=== PATIENT | female | born 2005 | race Caucasian/White ===

== ENCOUNTER 2024-05-20 15:16 | Emergency (ER) | payer MEDICAID, SELFPAY ==
[2024-05-20 15:17] VITALS: BP 123/86; PULSE 95; RESP 18; TEMP 36.2; O2SAT 100; BMI 24.8
[2024-05-20 15:52] LABS: Absolute Lymphocyte Count 1.06 X10^3/uL (0.83-4.51); Absolute Neutrophil Count 12.7 X10^3/uL (2.0-7.7); Basophil# 0.09 X10^3/uL; Basophil% 0.6 % (0-1); Eosinophil# 0.01 X10^3/uL; Eosinophils% 0.1 % (0-5); Hematocrit 41.1 % (37-47); Lymphocyte # 1.06 X10^3/ul (0.83-4.51); Lymphocyte % 7.4 % (19-41); Mean Corp Hgb Conc 31.6 g/dL (32-36); Mean Corpuscular Hgb 21.4 pg (27.0-32.0); Mean Corpuscular Volume 67.7 fL (81-99); Mean Platelet Vol. 9.6 fl (6.2-12.0); Monocyte# 0.38 X10^3/uL; Monocyte% 2.7 % (0-10); NRBC Flagged by Analyzer 0 % (0-5); Neutrophil # 12.71 X10^3/uL (2.7-7.7); Neutrophil % 88.9 % (47-70); Platelet Count 333 K/mm3 (150-450); RBC Distribution Width CV 14.6 % (11.6-14.6); RBC Distribution Width SD 34.3 fl (35.1-43.9); Red Blood Count 6.07 M/mm3 (4.2-5.4); White Blood Count 14.3 K/mm3 (4.4-11.0)
[2024-05-20 15:59] LABS: Internal QC Validated? YES +Cl - CLEAR BKGD; Pregnancy, Serum, hCG Quali. NEGATIVE Negative; Record Kit Lot#, Serum Preg. 772476
[2024-05-20 16:06] LABS: ALB/GLOB Ratio 1.2 RATIO (0.9-2.4); AST(SGOT) 14 U/L (15-37); Alanine Aminotransfer ALT/SGPT 21 U/L (13-56); Albumin, Serum 4.6 g/dL (3.2-5.0); Alkaline Phosphatase 68 U/L (45-117); Anion Gap 11 (5-15); BUN 15 mg/dL (7-18); BUN/Creat Ratio 17.1 RATIO (10-20); Calcium,Total 9.8 mg/dL (8.5-10.1); Chloride 104 mmol/L (98-107); Creatinine, Serum 0.88 mg/dL (0.55-1.02); EST Glomerular Filtration Rate 88 mL/min (>60); Est Glom Filt Rate - Afr Amer 107 mL/min (>60); Estimated Creatinine Clearance 96.26 ml/min; Globulin 3.7 g/dL (2.2-4.2); Glucose 105 mg/dL (74-106); Potassium 3.8 mmol/L (3.5-5.1); Protein, Total 8.3 g/dL (6.4-8.2); Sodium Level 139 mmol/L (136-145)
--- NOTE | 2024-05-20 16:31 | EDS_ITS ---
HPI <Dr. Carol Handy DO - Last Filed: 05/20/24 17:44> History of Present Illness Chief Complaint: Nausea/Vomiting <MIGUEL ÁNGEL Pineda - Last Filed: 05/20/24 18:12> Narrative Narrative: Patient is a 18-year-old female with history of arthritis who does not take any medications, presenting to the emergency department for nausea and vomiting, generalized epigastric pain. Patient states that she got extremely intoxicated last evening, patient dates that she woke up around 10 AM and started vomiting. Patient that she cannot keep any water down. She states that her vomit is dark in color. She is here for evaluation [facility] <Dr. Carol Handy DO - Last Filed: 05/20/24 17:44> [facility] Medical History (Updated 05/20/24 @ 18:11 by MIGUEL ÁNGEL Pineda) Arthritis Home Medications ?Medication ?Instructions ?Recorded ?Last Taken ?Type ondansetron 4 mg disintegrating 4 mg PO Q8H PRN PRN Nausea #10 tabs 05/20/24 Unknown Rx tablet Allergy/AdvReac Type Severity Reaction Status Date / Time No Known Allergies Allergy Verified 05/20/24 15:17 Social History Smoking Status: Never smoker ROS <MIGUEL ÁNGEL Pineda - Last Filed: 05/20/24 18:12> ROS ED ROS Narrative Constitutional: Negative for fever, chills, weight loss, weakness Eyes: Negative for vision loss, vision change, double vision ENT: Negative for any sore throat, ear pain, congestion Cardiovascular: Negative for any chest pain, tightness, palpitations Respiratory: Negative for any cough, sputum production, hemoptysis, dyspnea, dyspnea on exertion, orthopnea Gastrointestinal: Negative for any diarrhea, constipation, blood in stool, blood in vomit. Positive for abdominal pain, nausea and vomiting : Negative for any urinary frequency, dysuria, retention, blood in urine Muscle skeletal: Negative for any neck pain, back pain Neurological: Negative for any headache, syncope, dizziness Skin: Negative for any rashes, itching, abrasions, lacerations Psychiatric: Negative for any depression, anxiety, stress, suicidal ideation, homicidal ideation Hematologic: Negative for any excessive bruising, easy bleeding EXAM <Dr. Carol Handy DO - Last Filed: 05/20/24 17:44> Physical Exam Const Vital Signs: 05/20/24 15:17 05/20/24 17:17 Temperature 97.2 F L Temperature Source Temporal Pulse Rate 95 87 Respiratory Rate 18 16 Blood Pressure 123/86 H 131/101 H Blood Pressure Mean 98 111 Pulse Ox 100 96 Oxygen Delivery Method Room Air <Live PhillipMIGUEL ÁNGEL - Last Filed: 05/20/24 18:12> Physical Exam Narrative Exam Narrative: Vital signs reviewed. Patient appears to be in no obvious distress HEET: Head normocephalic atraumatic, TMs clear bilaterally. Posterior pharynx is clear, moist mucous membranes. Nares clear bilaterally. Neck: Supple with no lymphadenopathy or tenderness. No signs of meningismus. Cardiac: Regular rate and rhythm no murmurs gallops or rubs, equal peripheral pulses bilaterally. Respiratory: Lungs clear to auscultation bilaterally. No chest tenderness. Abdomen: Soft, nontender, nondistended. No abdominal bruit or pulsatile masses. No hepatosplenomegaly Extremities: No peripheral edema, no signs of gross trauma or deformity. Active full range of motion of all extremities. Neuro: Cranial nerves II through XII intact, no focal neurological deficits. Skin: Clean dry and intact with no rash, purpura, petechiae, vesicles or pustules. Backs/flank: No CVA tenderness, no midline spinal tenderness, no deformity. Psych: Normal mood and affect. No SI, HI or acute psychosis. Const Vital Signs: 05/20/24 15:17 05/20/24 17:17 Temperature 97.2 F L Temperature Source Temporal Pulse Rate 95 87 Respiratory Rate 18 16 Blood Pressure 123/86 H 131/101 H Blood Pressure Mean 98 111 Pulse Ox 100 96 Oxygen Delivery Method Room Air [facility] <Dr. Carol Handy DO - Last Filed: 05/20/24 17:44> [facility] Narrative Medical decision making narrative: I have personally performed a face to face assessment of the patient and have reviewed the JABARI Note. I performed a substantive portion of the visit including all aspects of the following. My ferguson findings include: History is [patient presents to the emergency department complaint of vomiting. Patient states that she drank very heavily last night and was drinking vodka. This morning she woke up around 10 AM and started having vomiting and diarrhea. Patient thinks that the vomit was black and she brought me a picture of it however it looks brown in the pictures. Patient was concerned about internal bleeding. Denies any sick contacts. She has had no fevers. She has no significant medical history other than rheumatoid arthritis.] Exam is [HEENT-PERRLA, EOMI. Cranial nerves II through XII grossly intact. TMs clear. Mucous membranes moist. No adenopathy. Cardiovascular-regular rate and rhythm without murmur or ectopy Lungs-clear to auscultation, chest wall stable without crepitus or subcu emphysema Abdomen-normoactive bowel sounds, soft. Mild tenderness over the epigastric region with some guarding. There is no rebound, rigidity, or peritoneal signs. No mass palpated. Extremities-intact ?4, normal range of motion, normal pulses, atraumatic] Medical Decison Making [patient had an IV line established and was given normal saline fluid bolus. She was given Protonix IV. Basic labs obtained CBC with differential showed a white count of 14.3 with hemoglobin 13 and platelet count of 333. Chemistries unremarkable. Urinalysis was negative for infection and serum hCG was negative. Lipase was normal at 29. At this point I suspect alcohol intoxication as the cause of her symptoms versus viral gastroenteritis. Advised patient to push fluids. She will be given a prescription for Zofran for home. Advised to return if persistent vomiting, diarrhea, dehydration or condition should worsen anyway. She is advised to decrease alcohol intake] Other additions or changes: [None] Lab Data Attestation: I reviewed the patient's lab results. Labs: Laboratory Results - last 24 hr 05/20/24 05/20/24 15:39 17:17 WBC 14.3 H RBC 6.07 H Hgb 13.0 Hct 41.1 MCV 67.7 L MCH 21.4 L MCHC 31.6 L RDW Std Deviation 34.3 L RDW Coeff of Raheem 14.6 Plt Count 333 MPV 9.6 Immature Gran % (Auto) 0.300 Neut % (Auto) 88.9 H Lymph % (Auto) 7.4 L [place] % (Auto) 2.7 Eos % (Auto) 0.1 Baso % (Auto) 0.6 Absolute Neuts (auto) 12.7 H Absolute Lymphs (auto) 1.06 Nucleated RBC % 0 Sodium 139 Potassium 3.8 Chloride 104 Carbon Dioxide 24.0 Anion Gap 11 BUN 15 Creatinine 0.88 Estim Creat Clear Calc 96.26 Est GFR (MDRD) Af Amer 107 Est GFR (MDRD) Non-Af 88 BUN/Creatinine Ratio 17.1 Glucose 105 Calcium 9.8 Total Bilirubin 0.60 AST 14 L ALT 21 Alkaline Phosphatase 68 Total Protein 8.3 H Albumin 4.6 Globulin 3.7 Albumin/Globulin Ratio 1.2 Lipase 29 Serum , Qual NEGATIVE Urine Color Yellow Urine Clarity Clear Urine pH 7.0 Ur Specific [place] 1.010 Urine Protein 30 H Urine Glucose (UA) Normal Urine Ketones 5 H Urine Occult Blood 10 H Urine Nitrite Negative Urine Bilirubin Negative Urine Urobilinogen 1 H Ur Leukocyte Esterase Negative Urine RBC 0 SEEN Urine WBC 0 SEEN Ur Squamous Epith Cells 0-5 SEEN Urine Bacteria 1+ Urine Mucus 1+ <MIGUEL ÁNGEL Pineda - Last Filed: 05/20/24 18:12> MDM Lab Data Labs: Laboratory Results - last 24 hr 05/20/24 05/20/24 15:39 17:17 WBC 14.3 H RBC 6.07 H Hgb 13.0 Hct 41.1 MCV 67.7 L MCH 21.4 L MCHC 31.6 L RDW Std Deviation 34.3 L RDW Coeff of Raheem 14.6 Plt Count 333 MPV 9.6 Immature Gran % (Auto) 0.300 Neut % (Auto) 88.9 H Lymph % (Auto) 7.4 L [place] % (Auto) 2.7 Eos % (Auto) 0.1 Baso % (Auto) 0.6 Absolute Neuts (auto) 12.7 H Absolute Lymphs (auto) 1.06 Nucleated RBC % 0 Sodium 139 Potassium 3.8 Chloride 104 Carbon Dioxide 24.0 Anion Gap 11 BUN 15 Creatinine 0.88 Estim Creat Clear Calc 96.26 Est GFR (MDRD) Af Amer 107 Est GFR (MDRD) Non-Af 88 BUN/Creatinine Ratio 17.1 Glucose 105 Calcium 9.8 Total Bilirubin 0.60 AST 14 L ALT 21 Alkaline Phosphatase 68 Total Protein 8.3 H Albumin 4.6 Globulin 3.7 Albumin/Globulin Ratio 1.2 Lipase 29 Serum , Qual NEGATIVE Urine Color Yellow Urine Clarity Clear Urine pH 7.0 Ur Specific [place] 1.010 Urine Protein 30 H Urine Glucose (UA) Normal Urine Ketones 5 H Urine Occult Blood 10 H Urine Nitrite Negative Urine Bilirubin Negative Urine Urobilinogen 1 H Ur Leukocyte Esterase Negative Urine RBC 0 SEEN Urine WBC 0 SEEN Ur Squamous Epith Cells 0-5 SEEN Urine Bacteria 1+ Urine Mucus 1+ Treatment and Re-Evaluation :: Differential diagnosis includes however is not limited to: Bowel obstruction, acute cholecystitis, biliary colic, sequelae from alcohol use, nausea and vomiting Patient appears to be in no obvious distress, patient's vital signs are stable. Presenting to the emergency department with complaints of nausea and vomiting after drinking alcohol last evening.Patient is received in laboratory values, patient CBC shows a leukocytosis with white blood count of 14.3, this could be reactive, RBCs of 6.07, this could be secondary dehydration. Patient's serum was negative. Lipase was negative. Chemistries were unremarkable. Patient will receive IV fluids, IV Zofran, IV Toradol. Patient will also be dosed with Protonix. Patient will be reevaluated. On reevaluation, the patient was feeling much better. Patient's urinalysis was negative for any infection. Patient at this time will be given Zofran for home. She instructed to decrease her alcohol intake. She instructed to maintain hydration. She is happy with the plan of care, stable for discharge Discharge Plan Triage Chief Complaint: Nausea/Vomiting ED Midlevel Provider: Live Phillip ED Provider: Carol Handy Dx/Rx/DC Orders Clinical Impression: Nausea & vomiting Instructions: ED Vomiting (Adult) Prescriptions: New ondansetron 4 mg tablet,disintegrating 4 mg PO Q8H PRN PRN (Reason: Nausea) Qty: 10 0RF Primary Care Provider: HEMANT ADAMS APRN Referrals: Care Physician,No Primary [Non-Staff] - Activity Restrictions/Additional Instructions: Decrease your alcohol intake. Use the Zofran as needed. Maintain hydration. Your urine should be light yellow. Print Language: Wolof Disposition Disposition: Home, Self Care
[2024-05-20] MEDS: Ondansetron 4 MG/2 ML Vial IV (16:37)
[2024-05-20] MEDS: Ketorolac 15 MG/ML Vial IV (16:37)
[2024-05-20] MEDS: Pantoprazole Sodium 40 MG in 0.9% Normal Saline (100mL MB+) 100 ML 330 MG IV (16:37)
[2024-05-20 16:50] LABS: Lipase 29 U/L (13-75)
[2024-05-20] MEDS: 0.9% Normal Saline (1000mL) 1,000 ML 999 ML IV (17:16)
[2024-05-20 17:17] VITALS: BP 131/101; PULSE 87; RESP 16; O2SAT 96
[2024-05-20 17:29] LABS: Red Blood Cells-Urine 0 SEEN /hpf (0-5); White Blood Cells 0 SEEN /hpf (0-5)
[2024-05-20 17:33] LABS: Color, Urine Yellow (Yellow); Glucose, Dipstick Normal (Normal); Ketone-Dipstick 5 mg/dl (Negative); Leukocyte Esterase-Dipstick Negative /ul (Negative); Nitrite-Dipstick Negative (Negative); Occult Blood-Urine 10 /ul (Negative); Protein-Dipstick 30 mg/dl (Negative); Urine Bilirubin Dipstick Negative (Negative); Urine Clarity Clear (Clear); Urine Urobilinogen 1 mg/dl (Normal)
[2024-05-20 17:41] LABS: Bacteria 1+ /hpf (None Seen); Mucous, Urine 1+ /hpf (<or=2+); Squamous Epithelial Cells - UA 0-5 SEEN /hpf (5-10)
[2024-05-20 18:22] VITALS: BP 114/62; PULSE 73; RESP 15; TEMP 36.2; O2SAT 99
== END 2024-05-20 18:22 | disposition home or self-care (01) ==
PROVIDERS: Nurse Practitioner; Emergency Provider Emergency Medicine; Visit Provider Emergency Medicine
DX: R11.2 Nausea with vomiting, unspecified (principal); R19.7 Diarrhea, unspecified; R10.13 Epigastric pain
CPT/HCPCS: 80053; 81001; 83690; 84703; 85025; 96361; 96374; 96375; 99282; J7030; A4216; J2405

== ENCOUNTER 2024-07-06 02:41 | Emergency (ER) | payer MEDICAID, SELFPAY ==
[2024-07-06 02:41] VITALS: BP 130/96; PULSE 115; RESP 18; TEMP 36.7; O2SAT 99; BMI 26.3
--- NOTE | 2024-07-06 03:14 | EDS_ITS ---
HPI History of Present Illness Chief Complaint: General Illness Informant: patient Onset/Context/Timing Onset: Today and Yesterday Context: Gradual Onset Timing: Intermittent Current Severity: Mild Maximum Severity: Mild Narrative Narrative: Healthy 18-year-old female no seen past medical or surgical history currently on no medications. States she has had a mild cough and is also developed nausea, vomiting and diarrhea. No fever or chills. This has been the last couple days. Denies any significant abdominal pain. No melena. She is from [place] which is about an hour from here but is come up to visit her boyfriend. Prior similar symptoms: Yes Recent Illness/Hospitalization: No PFSH PFSH Medical History Arthritis Home Medications ?Medication ?Instructions ?Recorded ?Last Taken ?Type ondansetron 4 mg disintegrating 4 mg PO Q6H PRN nausea and 07/06/24 Unknown Rx tablet vomiting #10 tabs Allergy/AdvReac Type Severity Reaction Status Date / Time No Known Allergies Allergy Verified 05/20/24 15:17 Social History Smoking Status: Never smoker ROS ROS ED ROS Narrative Nausea, vomiting and diarrhea. Cough. Constitutional Constitutional ED: Denies chills or fever(s) Eyes Eyes: Denies blurry vision ENT ENT ED: Denies ear pain Cardiovascular Cardiovascular: Denies chest pain Respiratory/Chest Respiratory/Chest: Reports cough Gastrointestinal Gastrointestinal: Reports diarrhea, nausea and vomiting; Denies abdominal pain, constipation or melena Genitourinary Genitourinary ED: Denies dysuria or hematuria Musculoskeletal Musculoskeletal: Denies arthralgias Integumentary Denies abscess Neurologic Neurologic: Denies headache(s) Endocrine Endocrinology: Denies cold intolerance Hematologic/Lymphatic Hematologic/Lymphatic: Reports none Allergic/Immunologic Allergic/Immunologic ED: Denies mouth swelling, tongue swelling or urticaria EXAM Physical Exam Narrative Exam Narrative: Well-appearing 18-year-old female. Vital signs are stable afebrile. Pulse ox 9 9% on room air no hypoxia. H EENT exam unremarkable. Mytrex membranes. Neck nontender no JVD no lymphadenopathy. Lungs clear to auscultation bilaterally. Heart regular rhythm rate about 105 no murmur. Chest wall ribs nontender. Abdomen soft nontender. No peritoneal signs. No localizing right upper or right lower quadrant tenderness. No hernia or mass or obstruction. Moving all 4 extremities. Nontender no edema. Back unremarkable. Neurologically she is awake alert no focal motor deficits. Const Vital Signs: 07/06/24 02:41 Temperature 98.0 F Temperature Source Oral Pulse Rate 115 H Respiratory Rate 18 Blood Pressure 130/96 H Blood Pressure Mean 107 Pulse Ox 99 Oxygen Delivery Method Room Air Positive well nourished and well developed; Negative for cachectic, contractures or unkempt General Appearance ED: well developed and NAD; Negative for unkempt, cachectic, contractures, cyanotic, diaphoretic or pallor Nutritional Appearance: Negative for cachectic HEENT Reports moist mucous membranes Negative for trauma or tenderness Eyes PERRL and EOMs intact bilaterally General Eye ED: Negative for pale conjunctiva or scleral icterus Neck no lymphadenopathy, supple and no JVD Lymph Lymphatic: Negative for other Chest Wall inspection of chest normal and palpation of chest normal Resp normal respiratory effort and clear to auscultation bilaterally Effort and Inspection: Negative for retractions Auscultation: Negative for rales, rhonchi, wheezes or diminished lung sounds Cardio regular rate, regular rhythm, S1 normal heart sound, S2 normal heart sound and no murmurs Palpation: Negative for palpable S3 or palpable S4 Rate: tachycardic; Negative for bradycardia or other GI normal to inspection, nondistended, normoactive bowel sounds, non-tender, non- distended and no masses Inspection: Negative for abdominal distention Palpation: soft; Negative for tender, guarding or rebound tenderness present Back/Spine no CVA tenderness Extremity normal to inspection General Extremety ED: Negative for edema or tenderness General Extremity: Negative for edema Neuro oriented x3 and CN's II-XII intact bilaterally Sensorium / Orientation: alert; Negative for orientation impaired, lethargic or stuporous Motor Exam: strength 5/5 throughout Psych mental status grossly normal Appearance: Negative for unkempt Attitude: No agitated Mood & Affect: Negative for depressed, anxious or tearful Skin no rashes or lesions noted, no wounds and skin turgor normal General Skin Exam: elasticity normal; Negative for jaundice or pallor Lesions: No lesion noted Rashes: No rashes noted Trauma: Negative for abrasion MDM MDM MDM Narrative Medical decision making narrative: 8-year-old female with what sounds like a viral gastroenteritis. Clinically looks well. Abdomen benign. She clinically does not look dehydrated. She will be treated p.o. Zofran and prescription for home. Fluids and rest. Increase diet slowly as tolerated. Return if worse otherwise follow-up with a local primary care physician. Should be written for a prescription of Zofran. I do not think she needs any labs at this time. She clinically looks well and has a benign exam. Discharge Plan Triage Chief Complaint: General Illness ED Provider: Juanjo Hodgson Dx/Rx/DC Orders Clinical Impression: Viral syndrome, Vomiting, Viral gastroenteritis Instructions: ED Gastroenteritis, Viral (Adult) Prescriptions: New ondansetron 4 mg tablet,disintegrating 4 mg PO Q6H PRN (Reason: nausea and vomiting) Qty: 10 0RF Primary Care Provider: NOT,DEFINED Referrals: oHla Loya MD [Med Staff - Supervisor Finishing] - As soon as possible NOT,DEFINED [Primary Care Provider] - Activity Restrictions/Additional Instructions: Plenty of fluids and rest. Zofran as needed for nausea. Slowly increase your diet as tolerated. Follow-up with not improving. Return if worse. Tums or [id number] Protonix or Pepcid for your stomach. Print Language: Serbian Disposition Disposition: Home, Self Care
[2024-07-06] MEDS: Ondansetron ODT 4 MG Tablet 8 MG PO (03:18)
== END 2024-07-06 04:25 | disposition home or self-care (01) ==
LOC: ED 03:14
PROVIDERS: Emergency Provider Emergency Medicine; Visit Provider Emergency Medicine
DX: A08.4 Viral intestinal infection, unspecified (principal); B34.9 Viral infection, unspecified; R05.9 Cough, unspecified
CPT/HCPCS: 99282